=== PATIENT | male | born 1945 | race Caucasian/White ===

== ENCOUNTER → 2023-11-15 13:54 | Outpatient (REF) | payer MEDICARE, OTHER, SELFPAY | LOC: RCS 13:54 | PROVIDERS: ATTENDING PHYSICIAN Nuclear Medicine Nuclear Cardiology; FAMILY PHYSICIAN Family Medicine | DX: I45.10 Unspecified right bundle-branch block (principal); I73.9 Peripheral vascular disease, unspecified; I35.1 Nonrheumatic aortic (valve) insufficiency; I51.7 Cardiomegaly | CPT/HCPCS: 93306 ==

== ENCOUNTER → 2023-12-21 10:14 | Outpatient (REF) | payer MEDICARE, OTHER, SELFPAY | LOC: RAD 10:14 | PROVIDERS: ATTENDING PHYSICIAN Nuclear Medicine Nuclear Cardiology; FAMILY PHYSICIAN Family Medicine | DX: I73.9 Peripheral vascular disease, unspecified (principal) | CPT/HCPCS: 93922; 93925 ==

== ENCOUNTER → 2024-08-04 10:09 | Outpatient (REF) | payer MEDICARE, OTHER, SELFPAY | LOC: RCS 10:09 | PROVIDERS: ATTENDING PHYSICIAN Nuclear Medicine Nuclear Cardiology; FAMILY PHYSICIAN Family Medicine | DX: I10 Essential (primary) hypertension (principal); I51.7 Cardiomegaly; I45.10 Unspecified right bundle-branch block; I35.1 Nonrheumatic aortic (valve) insufficiency | CPT/HCPCS: 93306 ==

== ENCOUNTER → 2025-01-12 06:54 | Outpatient (REF) | payer MEDICARE, OTHER, SELFPAY | LOC: RAD 06:54 | PROVIDERS: ATTENDING PHYSICIAN Nuclear Medicine Nuclear Cardiology; FAMILY PHYSICIAN Family Medicine | DX: I73.9 Peripheral vascular disease, unspecified (principal) | CPT/HCPCS: 93922; 93925 ==